=== PATIENT | female | born 1980 | race Caucasian/White ===

== ENCOUNTER 2019-11-24 23:44 | Emergency (ER) | payer OTHER ==
[~2019-11-24] VITALS: Ht 162.6 cm; Wt 63.5 kg
== END 2019-11-25 02:24 | disposition home or self-care (01) ==
LOC: ER 23:44
DX: K11.20 Sialoadenitis, unspecified (principal)
CPT/HCPCS: 99283

== ENCOUNTER → 2020-09-12 | Outpatient (CLI) | payer OTHER ==
[~2020-09-12] MED LIST: ACETAMINOPHEN500 MG PO; PRENATAL TABLE1 EAC2 PO; PROC5 PO; Pyridium200 MG PO
[2020-09-14 01:08] LABS: CHLAMYDIA TRACHOMATIS, NAA Negative (Negative)
== END ==
LOC: LAB UCHC 11:30 → LAB SHORT 11:30
PROVIDERS: Registered Nurse Community Health
DX: B37.3 Candidiasis of vulva and vagina (principal)
CPT/HCPCS: 87070; 87205; 87491; 87591

== ENCOUNTER 2020-09-14 19:18 | Emergency (ER) | payer OTHER ==
[~2020-09-14] VITALS: Ht 162.6 cm; Wt 81.7 kg
[2020-09-14 20:04] LABS: BASOPHILS ABSOLUTE AUTO 0.03 K/mm3 (0.00-0.23); BASOPHILS PERCENT AUTO 0 % (0-2); EOSINOPHILS ABSOLUTE AUTO 0.22 K/mm3 (0.00-0.68); EOSINOPHILS PERCENT AUTO 2 % (0-6); Hematocrit 38.7 % (33.0-51.0); Hemoglobin 12.9 g/dL (11.5-16.0); IMMATURE GRAN ABSOLUTE AUTO 0.03 K/mm3 (0.00-0.10); IMMATURE GRAN PERCENT AUTO 0 % (0-1); LYMPHOCYTES ABSOLUTE AUTO 2.54 K/mm3 (0.84-5.20); LYMPHOCYTES PERCENT AUTO 21 % (21-46); MONOCYTES ABSOLUTE AUTO 0.92 K/mm3 (0.16-1.47); MONOCYTES PERCENT AUTO 8 % (4-13); Mean Corpuscular HGB 31.1 pg (26.0-34.0); Mean Corpuscular HGB Conc 33.3 g/dL (31.5-36.5); Mean Corpuscular Volume 93 fL (80-100); Mean Platelet Volume 10.3 fL (9.1-12.4); NEUTROPHILS ABSOLUTE AUTO 8.12 K/mm3 (1.96-9.15); NEUTROPHILS PERCENT AUTO 68 % (41-73); Platelet Count 294 K/mm3 (150-400); RDW Coefficient Variation 12.2 % (11.7-14.2); RDW Standard Deviation 42.4 fL (35.1-46.3); Red Blood Cell Count 4.15 M/mm3 (3.80-5.20); White Blood Cell Count 11.86 K/mm3 (4.00-11.30)
[2020-09-14 20:24] LABS: Alanine Aminotransfer (ALT/SGP 15 U/L (12-78); Albumin, Blood 3.1 g/dL (3.4-5.0); Albumin/Globulin Ratio 0.9 (0.8-1.8); Alk Phos 46 U/L (50-136); Anion Gap 8 mmol/L (6-16); Aspartate Aminotrans (AST/SGOT 16 U/L (12-37); Bilirubin, Total 0.3 mg/dL (0.1-1.0); Blood Urea Nitrogen 11 mg/dL (8-24); Bun/Creatinine Ratio 28.1 (12.0-20.0); CO2, Blood 22 mmol/L (21-32); Calcium, Blood 9.3 mg/dL (8.5-10.1); Chloride, Blood 105 mmol/L (98-108); Creatinine, Blood 0.39 mg/dL (0.40-1.00); Globulin, Blood 3.3 g/dL (2.2-4.0); Glomerular Filtration Rate >60 (60-); Glucose, Blood 100 mg/dL (70-99); Potassium, Blood 3.7 mmol/L (3.5-5.5); Sodium, Blood 135 mmol/L (136-145); Total Protein, Blood 6.4 g/dL (6.4-8.2)
[2020-09-14] MEDS ORDERED: PRENATAL TABLE1 EAC2 PO (21:26)
[2020-09-14 21:34] LABS: Source, Urine Catheter
[2020-09-14 21:36] LABS: Bilirubin, Urine Neg (Neg); Blood, Urine Neg (Neg); Glucose Qualitative, Urine Neg (Neg); Ketones, Urine Neg (Neg); Leukocyte Esterase, Urine Neg (Neg); Nitrite, Urine Neg (Neg); Protein, Urine Neg (Neg); Specific Gravity, Urine 1.015 (1.003-1.022); Urobilinogen, Urine NORM (Normal)
[2020-09-14 21:44] LABS: Appearance, Urine Hazy (Clear); Color, Urine Yellow (P-Yellow)
[2020-09-14 21:45] LABS: Amorphous Heavy (0-Heavy); Bacteria Few /hpf; Red Blood Cells, Urine Not Seen /hpf (0-2); Squamous Epithelial Cells Mod /hpf (Few); White Blood Cells, Urine Not Seen /hpf (0-5)
[2020-09-14] MEDS ORDERED: ACETAMINOPHEN500 MG PO (22:37)
[2020-09-14] MEDS ORDERED: Pyridium200 MG PO (22:37)
== END 2020-09-14 22:56 | disposition home or self-care (01) ==
LOC: ER 19:18
PROVIDERS: Physician Assistant
DX: O99.891 Other specified diseases and conditions complicating pregnancy (principal); R30.0 Dysuria; R39.15 Urgency of urination; R35.0 Frequency of micturition; Z79.899 Other long term (current) drug therapy; Z3A.09 9 weeks gestation of pregnancy; Z87.891 Personal history of nicotine dependence
CPT/HCPCS: 36415; 80053; 81001; 85025; 99283

== ENCOUNTER 2020-09-28 18:22 | Emergency (ER) | payer OTHER ==
[~2020-09-28] VITALS: Ht 162.6 cm; Wt 81.7 kg
[~2020-09-28 18:22] MED LIST changes: -PROC5 PO
[2020-09-28] MEDS ORDERED: PROC5 PO (22:06)
== END 2020-09-28 22:35 | disposition home or self-care (01) ==
LOC: ER 18:22
DX: O99.351 Diseases of the nervous system complicating pregnancy, first trimester (principal); G43.009 Migraine without aura, not intractable, without status migrainosus; Z3A.12 12 weeks gestation of pregnancy; Z79.899 Other long term (current) drug therapy; Z87.891 Personal history of nicotine dependence
CPT/HCPCS: 96372-59; 99283-25; A9270; J0780; J1200

== ENCOUNTER → 2021-01-30 | Outpatient (CLI) | payer OTHER ==
[~2021-01-30] MED LIST changes: +PROC5 PO
[2021-01-30 17:17] LABS: Hematocrit 34.3 % (33.0-51.0); Hemoglobin 11.7 g/dL (11.5-16.0)
== END ==
LOC: LAB SHORT 15:01 → LAB 15:01
PROVIDERS: Registered Nurse Community Health
DX: Z34.91 Encounter for supervision of normal pregnancy, unspecified, first trimester (principal)
CPT/HCPCS: 82950; 85014; 85018

== ENCOUNTER → 2021-03-20 | Outpatient (CLI) | payer OTHER | LOC: LAB SHORT 14:03 → LAB 14:03 | DX: Z33.1 Pregnant state, incidental (principal) | CPT/HCPCS: 87081; 87150 ==